=== PATIENT | male | born 1995 | race Caucasian/White ===

== ENCOUNTER 2022-12-21 11:38 | Emergency (ER) | payer OTHER, MEDICAID ==
[~2022-12-21] VITALS: Ht 182.9 cm; Wt 79.8 kg
[2022-12-21 11:44] VITALS: BP 95/55
--- NOTE | 2022-12-21 11:48 | NUR ---
PTP BIBA ALS TO BED 1
--- NOTE | 2022-12-21 11:48 | NUR ---
RT AT BEDSIDE FOR VENT PLACEMENT.
[2022-12-21] MEDS ORDERED: fentaNYL citrate 0.05 MG/ML VIAL IVP ONE (12:00)
[2022-12-21] MEDS ORDERED: fentaNYL citrate 0.05 MG/ML VIAL IM PRN (12:00)
[2022-12-21] MEDS ORDERED: VANCOMYCIN 1,000 MG in DEXTROSE 5% 250 ML IV ONE (12:00)
[2022-12-21] MEDS ORDERED: NACL 0.9% 2,500 ML IV ONE (12:00)
[2022-12-21] MEDS ORDERED: LORazepam 2 MG/ML VIAL IVP ONE ×2 (12:00)
[2022-12-21] MEDS ORDERED: PIPERACILLIN/TAZOBACTAM 3.375 GM in DEXTROSE 5% 50 ML IV ONE (12:00)
--- NOTE | 2022-12-21 12:25 | NUR ---
pt in bed 1, already seen by , pt on vent, o2 sat 95% at 40%, PEEP 5, Vt 500. pt verbalizes his needs ST on cm, hr 140-150s, admits he feels anxious, has g tube in place, woodall cath in place, blood in meatus, no bleeding at this time, has sponge boots both legs, sr up times 2
[2022-12-21] MEDS ORDERED: ACETAMINOPHEN 650 MG SUPP RC ONE (12:30)
[2022-12-21] MEDS ORDERED: KETOROLAC 30 MG/ML VIAL IVP ONE (12:30)
[2022-12-21 13:26] LABS: APPEARANCE,URINE CLOUDY (CLEAR); COLOR,URINE AMBER (YELLOW)
[2022-12-21 13:27] LABS: LEUKOCYTE ESTERASE ,URINE 4+ (NEGATIVE); NITRITE, URINE NEGATIVE (NEGATIVE)
[2022-12-21 13:29] LABS: BLOOD, URINE 4+ (NEGATIVE)
[2022-12-21 13:30] LABS: BILIRUBIN,URINE 1+ (NEGATIVE)
[2022-12-21 13:31] LABS: UGLUCOSE NEGATIVE (NEGATIVE)
--- NOTE | 2022-12-21 13:33 | NUR ---
medicated for fever w tylenol and toradol, st on cm, hr 140s, sr up times 2 pt on vent
[2022-12-21 13:38] LABS: RBC,URINE 20-50 /HPF (0-5); WBC,URINE 16-25 (MOD) /HPF (0-5)
[2022-12-21 13:41] LABS: OTHER CASTS, URINE None Seen /LPF (None Seen)
--- NOTE | 2022-12-21 13:47 | NUR ---
BLOOD DRAWN BY THERAPEUTIC RIDING INSTRUCTOR
[2022-12-21] MEDS ORDERED: PIPERACILLIN/TAZOBACTAM 3.375 GM VIAL IV ONE (14:11)
[2022-12-21] MEDS ORDERED: VANCOMYCIN 1,000 MG VIAL ONE (14:30)
[2022-12-21 14:35] LABS: HEMATOCRIT 33.8 % (36-52); HEMOGLOBIN 11.2 g/dL (12.0-18.0); MEAN CORPUSCULAR HEMOGLOBIN 28 pg (27-31); MEAN CORPUSCULAR HGB CONC 33 g/dL (33-37); MEAN CORPUSCULAR VOLUME 83.9 fL (80-94); PLATELET COUNT (AUTO) 283 K/uL (140-450); RED BLOOD CELL COUNT(AUTO) 4.03 MIL/uL (4.20-6.10); RED CELL DISTRIBUTION WIDTH 15.9 % (11.6-13.7); WHITE BLOOD COUNT (AUTO) 16.1 K/uL (4.8-10.8)
[2022-12-21 15:11] LABS: ALBUMIN 3.2 g/dL (3.4-5.0); ANION GAP 16.1 (8-16); ASPARTATE AMINOTRANSFERASE 20 U/L (15-37); CARBON DIOXIDE 17.7 mmol/L (21-32); CHLORIDE 110 mmol/L (98-107); CREATININE 0.9 mg/dL (0.6-1.3); GFR ARICAN-AMERICAN 129 mL/min (>90); GLUCOSE 95 mg/dL (74-106); POTASSIUM 3.8 mmol/L (3.5-5.1); SODIUM SERUM 140 mmol/L (136-145); TOTAL BILIRUBIN 0.4 mg/dL (0.0-1.0); UREA NITROGEN, BLOOD 26 mg/dL (7-18)
[2022-12-21 15:22] LABS: LYMPHOCYTES % (MANUAL) 1 % (20-46); MONOCYTES % (MANUAL) 5 % (5-12)
--- NOTE | 2022-12-21 15:23 | NUR ---
PER BELA HAYS AND PATIENT REQUEST TO CUFF DEFLATED RESTING WELL GOOD CHEST RISE NO DISTRESS NOTED
[2022-12-21 17:50] VITALS: BP 82/52
--- NOTE | 2022-12-21 18:08 | NUR ---
pt sleeping, no ac distress, st on cm, hr 115/min, o2 sat 96% whie on vent, sr up times 2 will be transferred to awaiting asignment Charting by Basil Paris RN
--- NOTE | 2022-12-21 18:50 | NUR ---
ROSA GRADY (MOTHER) CALLED [phone], UPDATE GIVEN TO MOTHER ON PT WELL INFORMED OF TRANSFER TO [facility] ICU ROOM 2[address] ELECTROMEDICAL EQUIPMENT REPAIRER TIME @2029.
[2022-12-21] MEDS ORDERED: LORazepam 2 MG/ML VIAL ONE (18:51)
--- NOTE | 2022-12-21 19:01 | NUR ---
PT C/O STIFFNESS AT CHEST AND ALL BODY, REQUESTING MUSCLE RELAXER, ATIVAN GIVEN PER DR MALDONADO ORDER BP 115/60 CHARTING BY Basil MCKAY, RN
--- NOTE | 2022-12-21 19:40 | NUR ---
Patient resting in bed, awake, chest rise and fall symmetrical, no c/o pain or s/s of discomfort.
--- NOTE | 2022-12-21 20:38 | NUR ---
[facility] AT BEDSIDE
--- NOTE | 2022-12-21 20:55 | NUR ---
[facility] nurse Graham RN requested need to change woodall before transport, [facility] nurse Melody COURTNEY aware of request from [facility] nurse Graham RN.
--- NOTE | 2022-12-21 21:03 | NUR ---
Patient to be transferred to [facility] ICU. Is being transferred due to Insurance. Receiving facility has accepting physician and available space. ER physician has signed transfer form. Patient or responsible alliance party has agreed to transfer and signed form. Patient belongings inventoried and will be sent with patient. Copy of nursing notes, lab reports, EKG, Physicians Orders and X-rays to be sent with patient. Report called to Santos COURTNEY at receiving facility. Santos COURTNEY verbalized understanding of report, no further questions. [facility] ambulance service has been called for transfer and is waiting at bedside, [facility] Nurse Melody Vazquez RN given report. HUMBLE Vazquez RN verbalized understanding of report, no further questions. Addendum: 12/21/22 at 2121 by [email or web address] Patient to be transferred to [facility] ICU. Is being transferred due to Insurance. Receiving facility has accepting physician and available space. ER physician has signed transfer form. Patient or responsible alliance party has agreed to transfer and signed form. Patient belongings inventoried and will be sent with patient. Copy of nursing notes, lab reports, EKG, Physicians Orders and X-rays to be sent with patient. Report called to Santos COURTNEY at receiving facility. Santos COURTNEY verbalized understanding of bilateral great ingrown toe nails removal wounds covered and chest wound covered. Santos COURTNEY verbalized understanding of report, no further questions. [facility] ambulance service has been called for transfer and is waiting at bedside, HUMBLE Vazquez RN given report. HUMBLE Vazquez RN verbalized understanding of report, no further questions.
--- NOTE | 2022-12-21 21:06 | NUR ---
Ryder catheter replaced with new 16 F Ryder catheter per orders. [facility] Nurse Santos RN called at [phone] and verbally informed. [facility] Nurse Santos RN verbalized understanding, no further questions.
--- NOTE | 2022-12-21 21:12 | NUR ---
Patient safely transferred by [facility] ambulance.Patient left with all transfer information and belongings.
[2022-12-22 23:36] VITALS: BP 132/72
--- NOTE | 2022-12-24 17:05 | NUR ---
LATE ENTRY. RECEIVED POSITIVE URINE/BLOOD CULTURE RESULTS. FORM GIVEN TO DR COSTELLO. PT WAS TRANSFERRED TO [facility]. SPOKE WITH PTS NURSE JOB, RESULTS FAXED OVER TO [phone]. FORM PLACED IN [place]
== END 2022-12-21 21:12 | disposition short-term general hospital (02) ==
LOC: MED 11:38
DX: A41.9 Sepsis, unspecified organism (principal); Z20.822 Contact with and (suspected) exposure to COVID-19; R65.20 Severe sepsis without septic shock; J96.00 Acute respiratory failure, unspecified whether with hypoxia or hypercapnia; J18.9 Pneumonia, unspecified organism; R00.0 Tachycardia, unspecified; G82.50 Quadriplegia, unspecified; N30.80 Other cystitis without hematuria
CPT/HCPCS: 36415; 71045; 80053; 81001; 83605; 84484; 85025; 87040; 87086; 87426; 87804; 93005; 96365; 96367; 96375; 99291; J1885; J2060; J2543; J3370; J7030; Q0092